=== PATIENT | female | born 1960 | race Caucasian/White ===

== ENCOUNTER 2025-08-08 04:24 | Emergency (ER) | payer BC, SELFPAY ==
--- NOTE | 2025-08-08 | ECG_ITS ---
Test Reason : CP Blood Pressure : */* mmHG Vent. Rate : 132 BPM Atrial Rate : 132 BPM P-R Int : 126 ms QRS Dur : 94 ms QT Int : 320 ms P-R-T Axes : 24 71 36 degrees QTcB Int : 474 ms Sinus tachycardia Otherwise normal ECG When compared with ECG of 28-May-2007 17:04, Fusion complexes are no longer Present Referred By: Generic ED Physician Electronically Signed By: CLAUDE MATHEW MD
--- NOTE | ~2025-08-08 | XR_ITS ---
CLINICAL HISTORY: chest pain 1 view chest x-ray Comparison: None provided Findings: The lungs are clear. Heart size is normal. No acute fracture. IMPRESSION: 1. No acute findings. This document has been electronically signed by: Juaquin Conn MD on 08/08/2025 05:19:00
[2025-08-08 04:31] VITALS: BP 187/84; PULSE 133; RESP 13; TEMP 37.1; O2SAT 98; BMI 25.6
--- NOTE | 2025-08-08 04:42 | ED_ITS ---
HPI - Arrhythmia/Palpitations General Chief Complaint: Arrhythmia/Palpitations Stated Complaint: right arm and chest pain, heart palpitations Time Seen by Provider: 08/08/25 04:28 Source: patient Mode of arrival: ambulatory Limitations: no limitations History of Present Illness ED Provider: Kalpesh VERMA HPI narrative: The patient is a 65-year-old female presenting to the ED for evaluation of racing heart sensation and chest pain which began around 23:00. Patient reports she went out dancing this evening, which is a common activity for her, had 1 alcoholic drink which was in a plastic cup, but denies any substance use. The patient reports she remembers the entire evening, drove home, upon arriving home patient began experiencing pain in her right arm radiating to her chest and scapula followed by a few episodes of nonbloody diarrhea. Patient reports while experiencing the episodes of nonbloody diarrhea she developed racing heart sensation with mild chest pain. Patient attempted to lay down to go to sleep however symptoms persisted prompting her to come to the ED for evaluation. Patient arrives to the ED tachycardic, reporting persistent racing heart sensation but reporting resolution of chest pain prior to arrival in the ED, denies active chest pain in the ED. Patient reports a continued ache in her right arm. The patient denies any recent sick contacts or trauma, denies associated fever/chills, vomiting, pleurisy, hemoptysis, dysuria, hematuria, hematochezia, or melena. The patient reports history of hypertension and hyperlipidemia for which she reports compliance with her medications, denies any recent medication changes. Patient denies history of CAD or previous episodes of palpitation/arrhythmias. Related Data Allergies Allergy/AdvReac Type Severity Reaction Status Date / Time lidocaine (From Anastia) AdvReac Vomiting Verified 08/08/25 04:38 Opioids - Morphine Analogues AdvReac Vomiting Verified 08/08/25 04:38 Review of Systems 2 Review of Systems: Yes all other systems are reviewed and are negative PMFSH Social History Social History Alcohol intake: current Alcohol intake frequency: holidays/special occasions only Alcohol type: beer Smoked in Last 30 Days: No Use of substances other than those prescribed or required for medical reasons: No Advance Directives: No Advance Directives Information Provided: No Patient : No Physical Exam 2 Vital Signs: Vital Signs: Last Vital Signs Temp 98.1 F 08/08/25 10:18 Pulse 97 08/08/25 10:18 Resp 15 08/08/25 10:18 BP 132/76 08/08/25 10:18 Pulse Ox 98 08/08/25 10:18 O2 Del Method Room Air 08/08/25 10:18 BMI result Body Mass Index 25.6 CONSTITUTIONAL: The patient appears non-toxic, well nourished and in no acute distress. Vital signs as documented. HEAD: Atraumatic, normocephalic. EYES: EOMs grossly intact, pupils equal, conjunctiva clear, no exudate. ENT: Nares patent, no discharge. Airway patent, no audible stridor, visible mucosa is pink and moist without noted lesions. NECK: Trachea is midline, no obvious masses or gross abnormalities. CHEST: Symmetric movement, normal appearance. LUNGS: LS present and CTAB, no w/r/r. Non-labored work of breathing. CARDIAC: Rapid but otherwise Regular Rhythm, S1/S2 appreciated, no murmurs, rubs or gallops. ABDOMEN: Abdomen soft and non-tender x4 quadrants, no palpable masses or organomegaly. : Deferred. EXTREMITIES: Normal tone, moves all extremities spontaneously without reported pain. No obvious acute injury or deformity noted. NEURO: Alert and oriented x3, CN II-XII appear grossly intact. Cerebellar Functioning grossly intact. No obvious sensory or motor deficits. Speech clear and appropriate. PSYCH: normal affect, appropriate eye contact, fluid speech, with appropriate response to questioning. No reported suicidality or homicidality. SKIN: Warm, dry, color appropriate, normal turgor. No rashes noted. Course Reevaluation(s) Reevaluation #1: Dr. Ibrahim: The patient was signed out to me by the physician chemistry research assistant. The patient had presented with tachycardia and right shoulder pain. She had presented to the emergency room approximately 4 hours after the onset of her discomfort. She had an initial EKG that showed significant sinus tachycardia. She was treated with IV fluids. Labs were sent that included an undetectable D-dimer. An initial troponin has been negative. She was signed out to me pending a 2nd troponin. The 2nd troponin was also undetectable. The patient was feeling better. She was still mildly tachycardic when I 1st encountered her and so she was given a 2 L of fluid. Ultimately her heart rate came down to the 90s. A repeat EKG was done that showed normal sinus rhythm at 100 beats per minute and was a fairly normal-looking EKG. Overall I do not have a good explanation for the episode the patient experienced. I do not know why she was so tachycardic. However given her workup in the emergency room I do not think she has a pulmonary embolism and I do not think she has an acute coronary syndrome. She does not seem to have any significant ongoing symptoms. I think she may be discharged to follow up with the regular doctor to discuss this episode further. However I also explained that if she has any significant recurrence of unusual symptoms she should return to the hospital by ambulance. She will be calling her PCP on Sunday for a prompt follow up appointment. Medications Administered Discontinued Medications Generic Name Dose Route Start Last Admin Trade Name Freq PRN Reason Stop Dose Admin Sodium Chloride 1,000 mls @ 999 mls/hr 08/08/25 04:45 08/08/25 06:10 Ns IV 08/08/25 05:45 Infused .Q1H1M JE Infusion Lactated Ringer's 1,000 mls @ 999 mls/hr 08/08/25 08:15 08/08/25 08:16 Lr IV 08/08/25 09:15 999 mls/hr .Q1H1M JE Administration Medical Decision Making Medical Decision Making MDM Narrative: 5:09 AM 08/08/2025 (Edmundo VERMA): The patient is a 65-year-old female presenting to the ED for evaluation of racing heart palpitations with associated right arm aching and diarrhea which began around 23:00 tonight. The patient reports symptoms began after returning home from dancing more she had 1 alcoholic drink and denies any other substance use. The patient in the ED is tachycardic but otherwise appears well, exam is reassuring, no focal findings. The patient's EKG shows tachycardia without evidence of ischemia. We will evaluate the patient with basic laboratory workup, chest x-ray, troponin, UDS, ethanol, and urinalysis. We will also add on viral swabs. 5:57 AM 08/08/2025 (Edmundo VERMA): Patient's chest x-ray has resulted and shows no focal consolidation or other acute cardiopulmonary process. Patient's ethanol is negative, UDS negative, basic laboratory evaluation shows no leukocytosis, anemia, electrolyte abnormality, or PAU. The patient's influenza, COVID, and RSV are all negative. Patient's initial troponin is negative, due to tachycardia with unknown etiology, we will add on D-dimer to rule out coagulopathic process. Patient's repeat troponin will be due at 07:00, patient's case signed out to Dr. Ibrahim. Differential Diagnosis ACS, noncardiac chest pain, dehydration, pneumonia, viral syndrome, toxic ingestion, PE, Admission/Observation Consideration of admission/observation: Escalation of care including admission/observation considered Lab Data MDM Lab Attestation statement: I reviewed the patient's lab results. 08/08/25 04:55 08/08/25 04:55 Labs: Lab Results 08/08/25 08/08/25 08/08/25 Range/Units 04:55 06:07 07:18 WBC 9.6 (4.8-10.8) X10*3/uL RBC 5.01 (4.20-5.50) X10*6/uL Hgb 14.6 (12.0-16.0) g/dl Hct 42.4 (37.0-47.0) % MCV 84.6 (80.0-98.0) fL MCH 29.1 (27.0-33.0) pg MCHC 34.4 (31.0-35.0) g/dl RDW 12.8 (11.0-16.0) % Plt Count 269 (160-400) X10*3/uL MPV 9.4 (9.4-12.3) fL Immature Gran % (Auto) 0.2 (0.0-0.4) % Neut % (Auto) 71.7 (45-73) % Lymph % (Auto) 21.6 (20-40) % Bacon % (Auto) 4.7 (2-11) % Eos % (Auto) 1.1 (0-4) % Baso % (Auto) 0.7 (0-2) % Lymph # (Auto) 2.1 (1.2-4.9) X10*3/uL Bacon # (Auto) 0.5 (0.1-1.2) X10*3/uL Eos # (Auto) 0.1 (0.0-0.4) X10*3/uL Baso # (Auto) 0.1 (0.0-0.2) X10*3/uL Abs Immat Gran (auto) 0.02 (0.00-0.03) X10*3/uL Absolute Neuts (auto) 6.9 (2.0-8.3) x10*3/uL Absolute Nucleated RBC 0.000 (0.0-0.012) X10*3/uL Nucleated RBC % (auto) 0.0 (0.0-0.2) /100WBC D-Dimer High Sensitivty < 150 NG/ML Sodium 141 (135-145) mmol/L Potassium 3.7 (3.3-5.1) mmol/L Chloride 106 (96-108) mmol/L Carbon Dioxide 25 (22-29) mmol/L Anion Gap 14 (12-20) BUN 12 (9-16) mg/dL Creatinine 0.79 (0.5-1.4) mg/dL Estim Creat Clear Calc 63.8 Estimated GFR > 60 Random Glucose 140 H (60-115) mg/dL Calcium 9.4 (8.4-10.2) mg/dL Magnesium 2.0 (1.6-2.6) mg/dL Total Bilirubin 0.4 (0.0-1.0) mg/dL AST 31 (5-31) U/L ALT 27 (0-31) U/L Alkaline Phosphatase 107 (39-117) U/L Troponin I High Sens < 2.7 < 2.7 (<3.5-17.0) ng/L Total Protein 7.5 (6.5-8.0) g/dL Albumin 4.8 (3.5-5.0) g/dL Urine Opiates Screen Not Detected (Not Detect) Ur Buprenorphine Scrn Not Detected (Not Detect) ng/mL Ur Oxycodone Screen Not Detected (Not Detect) ng/mL Urine Methadone Screen Not Detected (Not Detect) ng/mL Urine Fentanyl Screen Not Detected (Not Detect) Ur Barbiturates Screen Not Detected (Not Detect) Ur Phencyclidine Scrn Not Detected (Not Detect) Ur Amphetamines Screen Not Detected (Not Detect) U Benzodiazepines Scrn Not Detected (Not Detect) Urine Cocaine Screen Not Detected (Not Detect) U Marijuana (THC) Screen Not Detected (Not Detect) Ethyl Alcohol < 10 mg/dL Influenza Type A (PCR) NEGATIVE (Negative) Influenza Type B (PCR) NEGATIVE (Negative) RSV RNA Qual (PCR) NEGATIVE (Negative) SARS-CoV-2 RNA (RT-PCR) NEGATIVE (Negative) Independent Interpretation I performed an independent interpretation of an: EKG (EKG shows sinus tachycardia with a rate of 132, no evidence of acute ischemia, no ST elevation, no ectopy. QTC 474. No old for comparison. ) Radiology Impression Discussion of test interpretation with radiology: I have reviewed the radiologist's reading. Radiologist Impression: CLINICAL HISTORY: chest pain 1 view chest x-ray Comparison: None provided Findings: The lungs are clear. Heart size is normal. No acute fracture. IMPRESSION: 1. No acute findings. This document has been electronically signed by: Juaquin Conn MD on 08/08/2025 05:19:00 External Record Review External record reviewed: Outpatient record Discharge Plan Discharge Clinical Impression: Pain in right shoulder, Chest pain, Tachycardia, Diarrhea Patient Disposition: Home, Self-Care Additional Instructions: Your testing in the emergency room today seems reassuring. You do not seem to have any signs of a heart attack or a blood clot in your lungs. I do not have a very good explanation for all the symptoms you experienced last night but since things seem well at this point I think going home is reasonable. Please plan on contacting your regular doctor's office on Sunday morning to schedule a follow up appointment to discuss this episode further. However if you feel significantly worse before then please call 911 and return to the emergency room. Referrals: Lorraine Peres MD [Primary Care Provider, Medical] Interventions: ED Discharge Assessment Last Done: 08/08/25 10:18 Discharge Date/Time: 08/08/25 10:19 Print Language: Italian
[2025-08-08 05:06] LABS: MANUAL DIFF FLAG NO
[2025-08-08 05:13] LABS: Hematocrit 42.4 % (37.0-47.0); Hemoglobin 14.6 g/dl (12.0-16.0); Imm Gran Abs Auto 0.02 X10*3/uL (0.00-0.03); Imm Gran Pct Auto 0.2 % (0.0-0.4); Lymphocytes Absolute Auto 2.1 X10*3/uL (1.2-4.9); Mean Corpuscular HGB Conc 34.4 g/dl (31.0-35.0); Mean Corpuscular Hemoglobin 29.1 pg (27.0-33.0); Mean Corpuscular Volume 84.6 fL (80.0-98.0); NRBC Abs Auto 0.000 X10*3/uL (0.0-0.012); NRBC Pct Auto 0.0 /100WBC (0.0-0.2); Platelet Count 269 X10*3/uL (160-400); Red Blood Count 5.01 X10*6/uL (4.20-5.50); White Blood Count 9.6 X10*3/uL (4.8-10.8)
[2025-08-08 05:24] LABS: Cannabinoid Screen Urine Not Detected (Not Detect)
[2025-08-08 05:28] LABS: Alanine Aminotransferase 27 U/L (0-31); Albumin Level 4.8 g/dL (3.5-5.0); Alkaline Phosphatase 107 U/L (39-117); Anion Gap 14 (12-20); Aspartate Amino Transferase 31 U/L (5-31); Blood Urea Nitrogen 12 mg/dL (9-16); Calcium 9.4 mg/dL (8.4-10.2); Carbon Dioxide 25 mmol/L (22-29); Chloride 106 mmol/L (96-108); Creatinine Clr Calc Pharmacy 63.8; Estimated Glomerular Filt Rate > 60; Magnesium 2.0 mg/dL (1.6-2.6); Potassium 3.7 mmol/L (3.3-5.1); Sodium 141 mmol/L (135-145); Total Protein 7.5 g/dL (6.5-8.0)
[2025-08-08 05:35] LABS: Troponin-I High Sensitivity < 2.7 ng/L (<3.5-17.0)
[2025-08-08 05:53] LABS: Resp Syncy Virus RNA Qual PCR NEGATIVE (Negative); SARS COV2 PCR INHOUSE NEGATIVE (Negative)
[2025-08-08 06:04] VITALS: BP 154/78; PULSE 104; RESP 18; TEMP 36.3; O2SAT 97
[2025-08-08 06:49] LABS: D Dimer High Sensitivity < 150 NG/ML
[2025-08-08 07:52] LABS: Troponin-I High Sensitivity < 2.7 ng/L (<3.5-17.0)
--- NOTE | 2025-08-08 07:57 | PC.NURSE ---
patient reports improvement in symptoms, resting quietly in room. provided with juice and crackers. awaiting dispo
[2025-08-08 08:04] VITALS: BP 150/80; PULSE 112; RESP 15; O2SAT 98
[2025-08-08] MEDS: Lactated Ringers 1,000 ML 999 ML IV (08:16)
--- NOTE | 2025-08-08 09:40 | ECG_ITS ---
Test Reason : TACHYCARDIA Blood Pressure : */* mmHG Vent. Rate : 100 BPM Atrial Rate : 100 BPM P-R Int : 168 ms QRS Dur : 90 ms QT Int : 362 ms P-R-T Axes : 25 59 39 degrees QTcB Int : 466 ms Normal sinus rhythm Normal ECG When compared with ECG of 08-Aug-2025 04:30, No significant change was found Referred By: Aric Ibrahim Electronically Signed By: CLAUDE MATHEW MD
[2025-08-08 10:18] VITALS: BP 132/76; PULSE 97; RESP 15; TEMP 36.7; O2SAT 98
== END 2025-08-08 10:19 | disposition home or self-care (01) ==
PROVIDERS: Emergency Medicine; Physician Assistant; Emergency Provider Emergency Medicine; PCP Internal Medicine
DX: R00.0 Tachycardia, unspecified (principal); M25.511 Pain in right shoulder; R19.7 Diarrhea, unspecified; R07.9 Chest pain, unspecified; Z03.818 Encounter for observation for suspected exposure to other biological agents ruled out
CPT/HCPCS: 36415; 71045; 80053; 80307; 83735; 84484; 85025; 85379; 87637; 93005; 96360; 99284; 99285; J7120

== ENCOUNTER → 2025-08-08 04:30 | Outpatient (BNV) | payer BC, SELFPAY | PROVIDERS: Emergency Provider Emergency Medicine; PCP Internal Medicine; Visit Provider Internal Medicine Cardiovascular Disease | DX: R00.0 Tachycardia, unspecified (principal) | CPT/HCPCS: 93010 ==

== ENCOUNTER → 2025-08-08 04:34 | Outpatient (BNV) | payer BC, SELFPAY | PROVIDERS: Emergency Provider Emergency Medicine; PCP Internal Medicine; Visit Provider Radiology Diagnostic Radiology | DX: R07.9 Chest pain, unspecified (principal) | CPT/HCPCS: 71045 ==